=== PATIENT | female | born 1985 | race Two or more races ===

== ENCOUNTER 2019-05-12 10:37 | Emergency (ER) | payer BC ==
[~2019-05-12] VITALS: Ht 175.3 cm; Wt 83.0 kg
[2019-05-12] MEDS ORDERED: ESKALITH300 MG PO (11:24)
[2019-05-12] MEDS ORDERED: ADDERALL 20 MG20 MG PO (11:25)
[2019-05-12] MEDS ORDERED: TRINTELLIX20 MG PO (11:25)
[2019-05-12] MEDS ORDERED: BACTRIM DS TAB1 EACH PO (15:35)
== END 2019-05-12 15:38 | disposition home or self-care (01) ==
LOC: ER 10:37
DX: N20.0 Calculus of kidney (principal); N39.0 Urinary tract infection, site not specified